=== PATIENT | male | born 1960 | race Caucasian/White ===

== ENCOUNTER 2017-06-08 13:22 | Emergency (ER) | payer BC ==
[~2017-06-08] VITALS: Ht 170.2 cm; Wt 94.8 kg
[2017-06-08] MEDS ORDERED: CLONIDINE HCL 0.1 MG TAB PO ONE (13:45)
[2017-06-08 14:30] LABS: BASOPHILS # (AUTO) 0.1 (0.0-0.1); BASOPHILS % 1.2 % (0.0-1.0); EOSINOPHILS # (AUTO) 0.3 (0.0-0.4); EOSINOPHILS % 3.2 % (0.0-6.0); HEMOGLOBIN 14.7 g/dL (14.0-18.0); LYMPHOCYTES # (AUTO) 3.6 (1.0-3.2); LYMPHOCYTES % 36.4 % (18.0-39.1); MEAN CORPUSCULAR HEMOGLOBIN 31.5 pg (28-32); MEAN CORPUSCULAR VOLUME 89.9 fL (81-99); MONOCYTES # (AUTO) 0.8 (0.2-0.8); MONOCYTES % 8.4 % (4.4-11.3); NEUTROPHILS % 50.5 % (38.7-80.0); PLATELET COUNT 284 x10e3/uL (140-360); RED BLOOD COUNT 4.67 x10e6/uL (4.3-5.7); RED CELL DISTRIBUTION WIDTH 12.9 % (11.7-14.4)
[2017-06-08 14:41] LABS: ANION GAP 14.9 mmol/L (8-16); BLOOD UREA NITROGEN 11 mg/dL (7-26); BUN/CREATININE RATIO 13 (6-25); CALCIUM 9.1 mg/dL (8.4-10.2); CARBON DIOXIDE 22 mmol/L (22-29); CHLORIDE 108 mmol/L (98-107); CREATININE, SERUM 0.85 mg/dL (0.72-1.25); EST GLOMERULAR FILTRATION RATE > 60 ML/MIN (60-); GLUCOSE 145 mg/dL (74-118); POTASSIUM 3.9 mmol/L (3.5-5.1); SODIUM 141 mmol/L (136-145)
[2017-06-08 15:49] LABS: BILIRUBIN,URINE NEGATIVE (NEGATIVE); CLARITY,URINE CLEAR (CLEAR); COLOR,URINE YELLOW (YELLOW); KETONES,URINE NEGATIVE (NEGATIVE); LEUKOCYTE ESTERASE ,URINE NEGATIVE (NEGATIVE); NITRITE,URINE NEGATIVE (NEGATIVE); PROTEIN,URINE DIPSTICK NEGATIVE (NEGATIVE); URINE UROBILINOGEN 0.2 mg/dL (0.2 - 1)
[2017-06-08 16:29] LABS: RBC,URINE 0-5 /HPF (0-5); WBC,URINE (MAN) 0-5 /HPF (0-5)
== END 2017-06-08 15:45 | disposition home or self-care (01) ==
LOC: ER 13:22
DX: B35.6 Tinea cruris (principal); I10 Essential (primary) hypertension
CPT/HCPCS: 36415; 80048; 81001; 82948; 85025; 87086; 99283

== ENCOUNTER 2017-06-10 21:41 | Emergency (ER) | payer BC ==
[~2017-06-10] VITALS: Ht 170.2 cm; Wt 94.8 kg
--- OUTSIDE RECORDS SUMMARY | 2017-06-10 21:44 | XMS REPORT | Continuity of Care Document ---
Author Author [facility] Organization [facility] Address [address] [place] [address] Phone Unavailable Care Team Providers Care Shirt Marker Name Role Phone NO, PCP PCP Unavailable Insurance Providers Guarantor Jenna Palacios Address [address] [place] [address] Email [email or web address] Ppo Policy Number [id number] Subscriber's Name Jenna Palacios Relationship 18 Self / Same As Patient Group Number [id number] Group Name [employer] Effective Date 16 Advance Directives Directive Response Recorded Date/Time Does the patient have an advance directive? No 05/02/16 12:22am If yes, is advance directive on file with [facility]? No 05/02/16 12:22am If not on file with [facility] will patient provide a copy? No 05/02/16 12:22am Problems No problem information available. Medications No medication information available. Social History Smoking Status Start Date Stop Date Never Smoker Hospital Discharge Instructions No hospital discharge instruction information available. Plan of Care Discharge Date 06/08/17 3:45pm Disposition HOME, SELF-CARE Condition at Discharge Stable Instructions/Education Provided Hypertension Tinea Cruris Rash - Nonspecific Forms Provided Work/School Excuse Prescriptions See Medication Section Referrals NIKITA MINA MD Order Date: Call for an appointment Address: [address] [place] [id number] Note: You must follow up to monitor your blood pressure and check on rash. Additional Instructions/Education DC Instructions: Call for follow up appointment to see your medical provider or the referral listed. Take the medication as prescribed. As discussed at the bedside, drink fluids, rest and return to the ER for any fever, shortness of breath, chest pain, trouble handling your oral secreations or any new concerns. Functional Status No functional status information available. Allergies, Adverse Reactions, Alerts No known allergies. Immunizations No immunization information available. Vital Signs Acute Vital Signs Vital Response Date/Time Height 5 ft 7 in 06/08/2017 1:30pm Weight 209 lb 06/08/2017 1:30pm Body Mass Index 32.7 kg/m^2 06/08/2017 1:30pm Results Laboratory Results Test Name Result Units Flags Reference Collection Date/Time Result Date/ Time Comments White Blood Count 9.90 x10e3/uL 4.8-10.8 06/08/2017 1:55pm 06/08/2017 2 :37pm Red Blood Count 4.67 x10e6/uL 4.3-5.7 06/08/2017 1:55pm 06/08/2017 2: 37pm Hemoglobin 14.7 g/dL 14.0-18.0 06/08/2017 1:55pm 06/08/2017 2:37pm Hematocrit 42.0 % 38.2-49.6 06/08/2017 1:55pm 06/08/2017 2:37pm Mean Corpuscular Volume 89.9 fL 81-99 06/08/2017 1:55pm 06/08/2017 2: 37pm Mean Corpuscular Hemoglobin 31.5 pg 28-32 06/08/2017 1:55pm 06/08/2017 2:37pm Mean Corpuscular Hemoglobin Concent 35.0 g/dL 31-35 06/08/2017 1:55pm 06/08/2017 2:37pm Red Cell Distribution Width 12.9 % 11.7-14.4 06/08/2017 1:55pm 2017 2:37pm Platelet Count 284 x10e3/uL 140-360 06/08/2017 1:55pm 06/08/2017 2: 37pm Neutrophils (%) (Auto) 50.5 % 38.7-80.0 06/08/2017 1:55pm 06/08/2017 2: 37pm Lymphocytes (%) (Auto) 36.4 % 18.0-39.1 06/08/2017 1:55pm 06/08/2017 2: 37pm Monocytes (%) (Auto) 8.4 % 4.4-11.3 06/08/2017 1:55pm 06/08/2017 2: 37pm Eosinophils (%) (Auto) 3.2 % 0.0-6.0 06/08/2017 1:55pm 06/08/2017 2: 37pm Basophils (%) (Auto) 1.2 % H 0.0-1.0 06/08/2017 1:55pm 06/08/2017 2: 37pm IM GRANULOCYTES % 0.3 % 0.0-1.0 06/08/2017 1:55pm 06/08/2017 2:37pm Neutrophils # (Auto) 5.0 2.1-6.9 06/08/2017 1:55pm 06/08/2017 2:37pm Lymphocytes # (Auto) 3.6 H 1.0-3.2 06/08/2017 1:55pm 06/08/2017 2: 37pm Monocytes # (Auto) 0.8 0.2-0.8 06/08/2017 1:55pm 06/08/2017 2:37pm Eosinophils # (Auto) 0.3 0.0-0.4 06/08/2017 1:55pm 06/08/2017 2:37pm Basophils # (Auto) 0.1 0.0-0.1 06/08/2017 1:55pm 06/08/2017 2:37pm Absolute Immature Granulocyte (auto 0.03 x10e3/uL 0-0.1 06/08/2017 1: 55pm 06/08/2017 2:37pm Urine Color YELLOW YELLOW 06/08/2017 1:55pm 06/08/2017 4:00pm Urine Clarity CLEAR CLEAR 06/08/2017 1:55pm 06/08/2017 4:00pm Urine Specific [place] 1.025 1.010-1.025 06/08/2017 1:55pm 2017 4:00pm Urine pH 6 5 - 7 06/08/2017 1:55pm 06/08/2017 4:00pm Urine Leukocyte Esterase NEGATIVE NEGATIVE 06/08/2017 1:55pm 2017 4:00pm Urine Nitrite NEGATIVE NEGATIVE 06/08/2017 1:55pm 06/08/2017 4:00pm Urine Protein NEGATIVE NEGATIVE 06/08/2017 1:55pm 06/08/2017 4:00pm Urine Glucose (UA) 2+ H NEGATIVE 06/08/2017 1:55pm 06/08/2017 4:00pm Urine Ketones NEGATIVE NEGATIVE 06/08/2017 1:55pm 06/08/2017 4:00pm Urine Urobilinogen 0.2 mg/dL 0.2 - 1 06/08/2017 1:55pm 06/08/2017 4: 00pm Urine Bilirubin NEGATIVE NEGATIVE 06/08/2017 1:55pm 06/08/2017 4: 00pm Urine Blood NEGATIVE NEGATIVE 06/08/2017 1:55pm 06/08/2017 4:00pm Sodium Level 141 mmol/L 136-145 06/08/2017 1:55pm 06/08/2017 2:43pm Potassium Level 3.9 mmol/L 3.5-5.1 06/08/2017 1:55pm 06/08/2017 2:43pm Chloride Level 108 mmol/L H 98-107 06/08/2017 1:55pm 06/08/2017 2:43pm Carbon Dioxide Level 22 mmol/L 22-29 06/08/2017 1:55pm 06/08/2017 2: 43pm Anion Gap 14.9 mmol/L 8-16 06/08/2017 1:55pm 06/08/2017 2:43pm Blood Urea Nitrogen 11 mg/dL 7-26 06/08/2017 1:55pm 06/08/2017 2:43pm Creatinine 0.85 mg/dL 0.72-1.25 06/08/2017 1:55pm 06/08/2017 2:43pm BUN/Creatinine Ratio 13 6-25 06/08/2017 1:55pm 06/08/2017 2:43pm Estimat Glomerular Filtration Rate > 60 ML/MIN 60- 06/08/2017 1:55pm 2:43pm Ranges were taken from the National Kidney Disease Education Program and the [employer] literature. Reference ranges: 60 or greater: Normal 16-59 (for 3 consecutive months): Chronic kidney disease 15 or less: Kidney failure Glucose Level 145 mg/dL H 74-118 06/08/2017 1:55pm 06/08/2017 2:43pm Calcium Level 9.1 mg/dL 8.4-10.2 06/08/2017 1:55pm 06/08/2017 2:43pm Bedside Glucose 134 mg/dL H 70-120 06/08/2017 1:48pm 06/08/2017 2:05pm Meter ID: [id number] Procedures No procedure information available. Encounters Encounter Location Arrival/Admit Date Discharge/Depart Date Attending Provider Departed Emergency Room [facility] 06/08/17 1:22pm 3:45pm RIGO APARICIO MD
== END 2017-06-10 22:01 | disposition home or self-care (01) ==
LOC: ER 21:41
DX: B35.6 Tinea cruris (principal); Z87.442 Personal history of urinary calculi
CPT/HCPCS: 99282